=== PATIENT | female | born 1965 | race African-American/Black ===

== ENCOUNTER 2017-01-14 06:46 | Emergency (ER) | payer OTHER ==
[2017-01-14 07:08] VITALS: TEMP 97.7; BMI 28.0
--- NOTE | 2017-01-14 07:51 | PDOC ---
History of Present Illness - General Chief Complaint: Pain Stated Complaint: FALL Time Seen by Provider: 01/14/17 07:18 History Source: Patient Exam Limitations: No Limitations - History of Present Illness Initial Comments: 51 y/o F w/no sig PMH presents to ER s/p mechanical fall. Pt was walking to work today when she tripped on sidewalk and fell, landing on her R hand (palmar side) and R knee, rolled on R shoulder, and hit L forehead. Pt denies any light- headedness, dizziness, or feeling faint before fall and denies the same after fall. She also denies LOC after the fall. Pt currently has R shoulder pain down to her elbow and c/o decreased ROM at R shoulder. Pt also c/o R knee pain which she states is baseline knee pain. She also c/o L forehead pain but denies RUSSELL. She also c/o double vision at this time but states that she does have some double vision at baseline and denies any other visual changes. She c/o chills at this time. She denies any ringing in ears, new changes in vision, nausea, vomiting, RUSSELL, CP, SOB, abd pain, numbness, tingling, fever. PCP - Dr. Nancy Clayton Past History - Travel Traveled outside of the country in the last 30 days: No - Past Medical History Allergies/Adverse Reactions: Allergies Allergy/AdvReac Type Severity Reaction Status Date / Time No Known Allergies Allergy Verified 01/14/17 07:08 Other medical history: Pt denies - Psycho/Social/Smoking Cessation Hx Suicidal Ideation: No Smoking History: Never smoked Information on smoking cessation initiated: No Hx Alcohol Use: No Drug/Substance Use Hx: No Substance Use Type: None Review of Systems - Review of Systems Able to Perform ROS?: Yes Comments:: CONSTITUTIONAL: +chills Absent: fever, diaphoresis, generalized weakness HEENT: +L forehead pain +double vision Absent: throat swelling, difficulty swallowing, mouth swelling, ear pain, eye pain, tinnitus CARDIOVASCULAR: Absent: chest pain, syncope, palpitations, irregular heart rate , lightheadedness, peripheral edema RESPIRATORY: Absent: cough, shortness of breath, dyspnea with exertion, orthopnea, wheezing, stridor GASTROINTESTINAL:Absent: abdominal pain, nausea, vomiting, diarrhea, constipation, melena, hematochezia GENITOURINARY: Absent: dysuria, frequency, urgency, hesitancy, hematuria, flank pain, genital pain MUSCULOSKELETAL: +R shoulder pain, +R shoulder decreased ROM, +R knee pain SKIN: +R palmar hand scrape, R knee scrape HEMATOLOGIC/IMMUNOLOGIC: Absent: easy bleeding, easy bruising, lymphadenopathy, frequent infections NEUROLOGIC: Absent: headache, focal weakness or paresthesias, dizziness, unsteady gait, seizure, mental status changes PSYCHIATRIC: Absent: anxiety, depression, suicidal or homicidal ideation, hallucinations *Physical Exam - Vital Signs Last Vital Signs Temp Pulse Resp BP Pulse Ox 97.7 F 86 20 120/59 97 01/14/17 07:04 01/14/17 07:04 01/14/17 07:04 01/14/17 07:04 01/14/17 07:04 - Physical Exam Comments: GENERAL: Well developed, well nourished. Awake and alert. HEENT: +L forehead contusion, PERRLA, EOMI. No conjunctival pallor. Sclera are non-icteric. Moist mucous membranes. Oropharynx is clear. Uvula midline, tongue midline w/no deviation. Equal sensation B/L face NECK: +Decreased ROM +R neck strain, No cervical tenderness, Supple. CARDIOVASCULAR: Regular rate and rhythm. No murmurs, rubs, or gallops. Distal pulses (including radial) are 2+ and symmetric. PULMONARY: No evidence of respiratory distress. Lungs clear to auscultation bilaterally. No wheezing, rales or rhonchi. ABDOMINAL: Soft. Non-tender. Non-distended. No rebound or guarding. No organomegaly. Normoactive bowel sounds. MUSCULOSKELETAL: +Decreased ROM at R shoulder, neck. 5/5 strength L UE and LE. 3 /5 strength R UE and LE. Pinpoint tendereness at R patella. R shoulder tenderness. EXTREMITIES: No edema. No calf tenderness. SKIN: Warm and dry. Abrasions on R palmar aspect of hand and on R knee. NEUROLOGICAL: +Decreased sensation in R upper arm. Equal sensation on face, B/L LE, and B/L forearms and hands. Alert, awake, appropriate. Cranial nerves 2-12 grossly intact. Normal speech. PSYCHIATRIC: Cooperative. Good eye contact. Appropriate mood and affect. Heart Score/ECG Review - ECG Intrepretation Comment:: Sinus tachycardia @ 106 bpm QTc 393 Medical Decision Making - Medical Decision Making 01/14/17 07:[address], R shoulder XR with wide view, R knee XR with sunrise view, R hand XR, TDaP. 01/14/17 08:[address]: Impression: No evidence of acute intracranial hemorrhage, edema, midline shift, mass effect, or skull fracture. No CT evidence of acute territorial infarction. 01/14/17 10:05 R Shoulder XR: Impression: There is a faint linear lucency traversing the mid to distal right clavicle raising concern for non-displaced fracture. No dislocation is seen. Ibuprofen 800 mg PO. 01/14/17 10:[address]: Impressions: No fracture or acute bone or joint abnormalities. Mild edematous changes are seen within the subcutaneous tissues anterior to the patella. 01/14/17 10:52 Hand XR: No fractures noted. 01/14/17 11:03 Pt instructed to f/u with orthopedics Dr. John. Pt to take motrin with food for pain. Pt will have R arm in sling and will be given a cane to help with ambulation. *DC/Admit/Observation/Transfer Diagnosis at time of Disposition: Contusion of knee, Contusion of shoulder Clavicle fracture Qualifiers: Encounter type: initial encounter Clavicle location: unspecified part of clavicle Fracture alignment: nondisplaced Laterality: right - Discharge Dispostion Disposition: HOME Condition at time of disposition: Stable - Referrals Referrals: Nancy Clayton MD [Primary Care Provider] - Michael John MD [Staff Physician] - - Patient Instructions Printed Discharge Instructions: DI for Clavicle Fracture-Adult, DI for Closed Head Injury, Closed Head Injury Additional Instructions: Please follow up with your primary care physician. Follow up with orthopedics. You can see Dr. John to follow up for your clavicle fracture. Please call [facility] for an appointment. For pain you may take motrin as directed with food. If your symptoms worsen please come back to the ER. - Post Discharge Activity Work/School Note: Back to Work
[2017-01-14] MEDS ORDERED: DIPHTH,PERTUSS(ACELL),TET VAC 0.5 ML VIAL IM ONE (07:54)
--- NOTE | 2017-01-14 07:58 | PDOC ---
Attending Attestation - Resident Resident Name: Kevin King - ED Attending Attestation I have performed the following: I have examined & evaluated the patient, The case was reviewed & discussed with the resident, I agree w/resident's findings & plan - HPI HPI: 01/14/17 08:00 Patient is a 51 year old female with no significant past medical history who presents to the ED s/p mechanical fall today. Patient states that she tripped over unpaved sidewalk and landed on her right hand and knee. Patient states that she then rolled onto the left shoulder and hit her left sided forehead. Patient denies any LOC. Patient reports right knee pain s/p fall, right hand pain, and R shoulder pain. Patient is not on any blood thinners daily. Patient states that she is unsure of her last Tetanus shot. Patient denies LOC, numbness, tingling or blurry vision. She denies any nausea, vomiting, chest pain, abdominal pain or SOB. PCP - Dr. Clayton <Cecily Ramirez - Last Filed: 01/14/17 07:59> - Physicial Exam PE: 01/14/17 08:04 Physical exam- Patient is alert and answering questions Last Vital Signs Temp Pulse Resp BP Pulse Ox 97.7 F 86 20 120/59 97 01/14/17 07:04 01/14/17 07:04 01/14/17 07:04 01/14/17 07:04 01/14/17 07:04 Physical exam is significant for Left forehead contusion Right palm contusion/abrasion Right knee contusion/abrasion, with intact quadriceps and patellar tendons, and no knee instability, but point tenderness on the patella Right shoulder-diffuse tenderness and some clavicle tenderness Grossly non-focal neuro exam - Medical Decision Making 01/14/17 09:29 51-year-old female with trip and fall injury. No sycope as cause of fall, and no LOC after fall CT head without-negative 01/14/17 10:44 Right shoulder series There is a possible hairline clavicle fracture, that is not through and through , and there is no displacement CT scan of the lower extremity- (Question of hairline tibial plateau fracture on plain films) On the CT scan, there is no fracture or acute bone or joint abnormalities R hand series negative
[2017-01-14] MEDS ORDERED: IBUPROFEN 400 MG TABLET (FP) PO ONE ×2 (09:59→10:10)
[2017-01-14 12:16] VITALS: BP 122/89; PULSE 80
== END 2017-01-14 12:56 | disposition home or self-care (01) ==
LOC: JER 06:46
PROC: 3E0234Z Introduction of Serum, Toxoid and Vaccine into Muscle, Percutaneous Approach (ICD-10-PCS; principal; 2017-01-14)
DX: S42.001A Fracture of unspecified part of right clavicle, initial encounter for closed fracture (principal); S80.01XA Contusion of right knee, initial encounter; S40.011A Contusion of right shoulder, initial encounter; W01.0XXA Fall on same level from slipping, tripping and stumbling without subsequent striking against object, initial encounter; Y93.01 Activity, walking, marching and hiking; Y92.480 Sidewalk as the place of occurrence of the external cause; Y99.8 Other external cause status
CPT/HCPCS: 70450-TC; 73030-TC-RT; 73130-TC-RT; 73564-TC-RT; 73700-TC-RT; 99282-25